=== PATIENT | male | born 1980 | race Caucasian/White ===

== ENCOUNTER → 2023-07-19 | Outpatient (CLI) | payer OTHER, SELFPAY ==
[2023-07-19 17:44] LABS: Absolute Lymphocyte Count 1.93 X10^3/uL (0.83-4.51); Absolute Neutrophil Count 4.8 X10^3/uL (2.0-7.7); Basophil# 0.05 X10^3/uL; Basophil% 0.6 % (0-1); Eosinophil# 0.21 X10^3/uL; Eosinophils% 2.7 % (0-5); Hematocrit 43.1 % (40-54); Hemoglobin 14.4 g/dL (13.0-16.5); Lymphocyte # 1.93 X10^3/ul (0.83-4.51); Lymphocyte % 24.9 % (19-41); Mean Corp Hgb Conc 33.4 g/dL (32-36); Mean Corpuscular Hgb 27.6 pg (27.0-32.0); Mean Corpuscular Volume 82.7 fL (80-94); Monocyte# 0.69 X10^3/uL; Monocyte% 8.9 % (0-10); NRBC Flagged by Analyzer 0 % (0-5); Neutrophil # 4.84 X10^3/uL (2.7-7.7); Neutrophil % 62.6 % (47-70); Platelet Count 312 K/mm3 (150-450); RBC Distribution Width CV 13.5 % (11.6-14.6); RBC Distribution Width SD 40.2 fl (35.1-43.9); Red Blood Count 5.21 M/mm3 (4.6-6.2); White Blood Count 7.7 K/mm3 (4.4-11.0)
[2023-07-19 18:03] LABS: ALB/GLOB Ratio 1.2 RATIO (0.9-2.4); AST(SGOT) 18 U/L (15-37); Alanine Aminotransfer ALT/SGPT 37 U/L (16-61); Albumin, Serum 4.1 g/dL (3.2-5.0); Alkaline Phosphatase 107 U/L (45-117); Anion Gap 6 (5-15); BUN 14 mg/dL (7-18); BUN/Creat Ratio 11.2 RATIO (10-20); Calcium,Total 9.2 mg/dL (8.5-10.1); Chloride 107 mmol/L (98-107); Cholesterol 198 mg/dL (200); Creatinine, Serum 1.25 mg/dL (0.70-1.30); EST Glomerular Filtration Rate 68 mL/min (>60); Est Glom Filt Rate - Afr Amer 82 mL/min (>60); Globulin 3.4 g/dL (2.2-4.2); Glucose 103 mg/dL (74-106); High Density Lipoprotein 35 mg/dL; Potassium 3.9 mmol/L (3.5-5.1); Protein, Total 7.5 g/dL (6.4-8.2); Sodium Level 140 mmol/L (136-145); T4 Free Direct 0.88 ng/dL (0.76-1.46); Thyroid Stim Hormone (TSH) 0.49 uIU/mL (0.358-3.74); Triglycerides 290 mg/dL; Very Low Density Lipoprotein 58 mg/dL (5-40)
== END | disposition home or self-care (01) ==
LOC: MTLAB 15:47
PROVIDERS: PCP Family Medicine; Referring Provider Family Medicine; Visit Provider Family Medicine
DX: E04.1 Nontoxic single thyroid nodule (principal); E66.9 Obesity, unspecified
CPT/HCPCS: 36415; 80053; 80061; 84439; 84443; 85025

== ENCOUNTER → 2023-07-22 | Outpatient (CLI) | payer OTHER, SELFPAY ==
--- NOTE | 2023-07-22 16:13 | US_ITS ---
STUDY: THYROID ULTRASOUND REASON FOR EXAM: Male, 42 years old. thryoid nodule TECHNIQUE: Ultrasound evaluation of the thyroid was performed with real-time and static cueto-scale imaging. COMPARISON: None. FINDINGS: RIGHT LOBE: The right lobe of the thyroid gland measures 6.2 x 2 x 2.9 cm. There is a homogeneous echotexture. There are no demonstrated solid, cystic or complex lesions. LEFT LOBE: The left lobe of the thyroid gland measures 5.9 x 2.1 x 2.1 cm. There is a homogeneous echotexture. There are no demonstrated solid, cystic or complex lesions. ISTHMUS: The isthmus measures 6 mm . There are multiple lymph nodes the largest on the right measuring 2.5 x 2.8 x 0.6 cm and on the left 1.7 x 1.3 x 2.7 cm. US/Head/Neck Soft Tissue IMPRESSION: Nonspecific diffuse thyroid enlargement without evidence for focal nodule. Clinical correlation recommended to exclude possibility of Graves'' disease. Mild bilateral adenopathy of indeterminate etiology or clinical significance. Electronically Signed: Dane Whitten MD at 22:58 EST ,
--- OUTSIDE RECORDS SUMMARY | 2023-07-22 19:46 | XMS RPT_ITS | CCD ---
Author Name Unknown Address [address] [place] [address] Organization [facility] Care Team Providers Care Workers Compensation Paralegal Name Role Phone Lisha Obregon Unavailable Unavailable Freddie Alvarado MD Primary Care Provider [phone] FREDDIE ALVARADO Primary Care Unavailable Allergies Allergy Classification Reported Allergen(s) Allergy Type Date of Onset Reaction(s) Facility (2 sources) fluticasone; Translations: [FLUTICASONE PROPIONATE] Drug Allergy 8 [facility] Work Phone: (2 sources) fluticasone / salmeterol; Translations: [FLUTICASONE PROPION-SALMETERO L] Drug Allergy 8 [facility] Work Phone: (1 source) Environmental allergies [Other] Propensity to adverse reactions 7 [facility] (1 source) OTHER; Translations: [OTHER] Propensity to adverse reactions (disorder) 7 [facility] Repository Medications Current Medications Medication Drug Class(es) Dates Sig (Normalized) Sig (Original) amoxicillin 875 mg / clavulanate 125 mg oral tablet (1 source) Penicillin-class Antibacterial Start: 12-20-2022 End: 12-25-2022 take 1 tablet by mouth twice daily amoxicillin-clav ulanic acid (AUGMENTIN) 875-125 mg per tablet Take 1 tablet by mouth twice daily for 5 days. 10 tablet 0 12/20/2022 12/25/2022 Active Completed/Discontinued Medications Medication Drug Class(es) Dates Sig (Normalized) Sig (Original) cetirizine hydrochloride 10 mg oral tablet (1 source) Histamine-1 Receptor Antagonist Start: 09-02-2006 take 1 tablet by mouth once daily cetirizine (ZYRTEC) 10 mg ORAL Tab Take one(1) tablet daily. for allergy 90 3 09/02/2006 Active Problems Active Problems Problem Classification Problem Date Documented Da te Episodic/Chronic Disorders of lipid metabolism (1 source) Dyslipidemia; Translations: [Hyperlipidemia, unspecified] 05-16-2013 Chronic Other upper respiratory disease (1 source) Allergic rhinitis; Translations: [Allergic rhinitis, unspecified] Onset: 06-12-2005 01-29-2011 Chronic Other upper respiratory infections (1 source) Bacterial sinusitis; Translations: [Chronic sinusitis, unspecified] 12-20-2022 Chronic Unclassified (1 source) Unknown / UNK(Unknown) Onset: 04-16-2017 Past or Other Problems Problem Classification Problem Date Documented Da te Episodic/Chronic Other lower respiratory disease (1 source) Cough; Translations: [Cough] Onset: 07-09-2006 01-29-2011 Episodic Unclassified (1 source) Z31.448 Onset: 04-16-2017 Results Test Name Value Interpretation Reference Range Facil ity Vital Signs Date Time Vital Sign Value Performing Clinician Ned litkhoa 12-20-2022 07:21-0400 Body temperature 98.2 [degF] Krislyn Aberegg PA Work Phone: [facility] 12-20-2022 07:21-0400 Body weight 119.66 kg Krislyn Aberegg PA Work Phone: [facility] 12-20-2022 07:21-0400 Diastolic blood pressure 84 mm[Hg] Krislyn Aberegg PA Work Phone: [facility] 12-20-2022 07:21-0400 Heart rate 88 /min Krislyn Aberegg PA Work Phone: [facility] 12-20-2022 07:21-0400 Respiratory rate 18 /min Krislyn Aberegg PA Work Phone: [facility] 12-20-2022 07:21-0400 SaO2% (BldA) [Mass fraction] 98 % Krislyn Aberegg PA Work Phone: [facility] 12-20-2022 07:21-0400 Systolic blood pressure 132 mm[Hg] Krislyn Aberegg PA Work Phone: [facility] Encounters Encounter Date Encounter Type Care Provider Facility Start: 12-20-2022 End: 12-20-2022 ambulatory FREDDIE VANESSAEY Facility:[facility] Start: 12-20-2022 End: 12-20-2022 Patient encounter procedure Cecelia GIVENS Work Phone: [facility] Plan of Treatment Date Care Activity Detail Author Start: 01-18-2023 Influenza vaccination INFLUENZA (#1) [facility] Start: 05-20-2022 DEPRESSION ASSESSMENT DEPRESSION ASS ESSMENT [facility] Start: 06-23-2021 COVID-19 VACCINE (4 - Moderna series) COVID-19 VACCINE (4 - Moderna series) [facility] Start: 12-18-2020 Urine microalbumin profile DTA P,TDAP,TD (3 - Td or Tdap) [facility] Start: 05-15-2018 LIPID SCREEN LIPID SCREEN [facility] Start: 2000 HEPATITIS C SCREENING HEPATITIS C SC REENING [facility] Start: 1982 HEPATITIS B (1 of 3 - 3-dose series) HEPATITIS B (1 of 3 - 3-dose series) [facility] Immunizations Immunization Date Immunization Notes Care Provider Jermaine gonzalez 12-18-2010 tetanus toxoid, redu bert diphtheria toxoid, and acellular pertussis vaccine, adsorbed Cecelia GIVENS Work Phone: [facility] Work Phone: 03-31-2007 influenza virus vacc ine, unspecified formulation Cecelia GIVENS Work Phone: [facility] 02-27-2007 pneumococcal polysaccharide vaccine, 23 valent Cecelia GIVENS Work Phone: [facility] 12-25-1999 tetanus and diphther ia toxoids, not adsorbed, for adult use Cecelia GIVENS Work Phone: [facility] Payers Date Payer Category Payer Unknown [id number] 2013 Unknown MMO MMO [employer] PPO [id number] 2013-Present [phone] [address] [place] [address] O [id number] Social History Date Type Detail Facility Start: 12-20-2022 Tobacco smoking stat [facility] Never smoked tobacco [facility] Start: 12-20-2022 Tobacco use and exposure Smoke less tobacco non-user [facility] Start: 12-20-2022 Alcohol intake Current drinke r of alcohol (finding) [facility] Start: 12-20-2022 Alcohol intake [facility] Start: 12-20-[address] [facility] Start: 1980 Sex Assigned At Not on file [facility] Progress note 12-20-2022 Note Date & Type Note Facility 12-20-2022 Note HNO ID: [id number] Author: Cecelia Chavez PA Service: ? Author Type: Physician Expeller Operator Type: Progress Notes Filed: 12/20/2022 7:28 AM Note Text: This note was created using [employer] the [employer]. Subjective Nikolay Smallwood is a 42 year old male. HPI 42-year-old male presents for sinus congestion, headache, ears plugged for about 2 weeks. He states that the congestion is mainly on the left side of his face. He has facial pain and headache on the left side. He feels like his ear is clogged. No fevers. No cough. No sick contacts that he is aware of. PAST MEDICAL HISTORY Diagnosis Date Allergic arthritis Anxiety state, unspecified Depressive disorder, not elsewhere classified Dyslipidemia PAST SURGICAL HISTORY Procedure Laterality Date TONSILLECTOMY PRIMARY/SECONDARY AGE 14/> age 15 ALLERGIES Advair Diskus [Fluticasone Propion-Salmeterol], Environmental Allergies [Other], and Flovent [Fluticasone Propionate] MEDICATIONS amoxicillin-clavulanic acid (AUGMENTIN) 875-125 mg per tablet Take 1 tablet by mouth twice daily for 5 days. cetirizine (ZYRTEC) 10 mg ORAL Tab Take one(1) tablet daily. for allergy (Patient not taking: Reported on 12/20/2022) FAMILY HISTORY Problem Relation Age of Onset GI Mother gerd Coronary Artery Disease Maternal Grandfather CABG x 5 Coronary Artery Disease Paternal Grandfather Hypertension Mother Stroke Paternal Grandmother Breast Cancer Mother Social History Tobacco Use Smoking status: Never Smokeless tobacco: Never Substance Use Topics Alcohol use: Yes Alcohol/week: 10.0 standard drinks of alcohol Drug use: No Review of Systems Constitutional: Negative for chills and fever. HENT: Positive for congestion, ear pain, sinus pressure and sinus pain. Negative for sore throat. Respiratory: Negative for cough and shortness of breath. Gastrointestinal: Negative for diarrhea and vomiting. Neurological: Positive for headaches. Objective BP 132/84 Pulse 88 Temp 36.8 ?C (98.2 ?F) Resp 18 Wt 119.7 kg (263 lb 12.8 oz) SpO2 98% BMI 35.78 kg/m? Physical Exam Vitals and nursing note reviewed. Constitutional: General: He is not in acute distress. Appearance: Normal appearance. He is not toxic-appearing. HENT: Right Ear: Tympanic membrane and ear canal normal. Left Ear: Tympanic membrane and ear canal normal. Nose: Mucosal edema and congestion present. Left Sinus: Maxillary sinus tenderness and frontal sinus tenderness present. Mouth/Throat: Mouth: Mucous membranes are moist. Eyes: Conjunctiva/sclera: Conjunctivae normal. Cardiovascular: Rate and Rhythm: Normal rate and regular rhythm. Pulmonary: Effort: Pulmonary effort is normal. Breath sounds: Normal breath sounds. Skin: General: Skin is warm and dry. Neurological: Mental Status: He is alert. Assessment and Plan ASSESSMENT/PLAN: 1. Bacterial sinusitis - ICD9: 473.9, 041.9, ICD10: J32.9, B96.89 - Will begin treatment with Augmentin 875 mg PO BID for 5 days - The patient should also be given OTC decongestants prn for the first 5-7 days of treatment. - Supportive care with plenty of fluids, rest, and analgesia prn. Diagnosis and treatment plan were discussed and questions were answered to the patient's satisfaction. Pt acknowledged understanding of concepts and follow up plan. Specific signs and symptoms that would indicate the need for higher level of care were discussed in detail warranting prompt ER evaluation. TOSHA Vieyra [facility] History of Present illness Narrative 12-20-2022 Cecelia Chavez PA - 12/20/2022 7:26 AM EDT Note Date & Type Note Facility 12-20-2022 History of Presen t illness Narrative This note was created using [email or web address]. Subjective Nikolay Smallwood is a 42 year old male. HPI 42-year-old male presents for sinus congestion, headache, ears plugged for about 2 weeks. He states that the congestion is mainly on the left side of his face. He has facial pain and headache on the left side. He feels like his ear is clogged. No fevers. No cough. No sick contacts that he is aware of. PAST MEDICAL HISTORY Diagnosis Date Allergic arthritis Anxiety state, unspecified Depressive disorder, not elsewhere classified Dyslipidemia PAST SURGICAL HISTORY Procedure Laterality Date TONSILLECTOMY PRIMARY/SECONDARY AGE 14/> age 15 ALLERGIES Advair Diskus [Fluticasone Propion-Salmeterol], Environmental Allergies [Other], and Flovent [Fluticasone Propionate] MEDICATIONS amoxicillin-clavulanic acid (AUGMENTIN) 875-125 mg per tablet Take 1 tablet by mouth twice daily for 5 days. cetirizine (ZYRTEC) 10 mg ORAL Tab Take one(1) tablet daily. for allergy (Patient not taking: Reported on 12/20/2022) FAMILY HISTORY Problem Relation Age of Onset GI Mother gerd Coronary Artery Disease Maternal Grandfather CABG x 5 Coronary Artery Disease Paternal Grandfather Hypertension Mother Stroke Paternal Grandmother Breast Cancer Mother Social History Tobacco Use Smoking status: Never Smokeless tobacco: Never Substance Use Topics Alcohol use: Yes Alcohol/week: 10.0 standard drinks of alcohol Drug use: No Review of Systems Constitutional: Negative for chills and fever. HENT: Positive for congestion, ear pain, sinus pressure and sinus pain. Negative for sore throat. Respiratory: Negative for cough and shortness of breath. Gastrointestinal: Negative for diarrhea and vomiting. Neurological: Positive for headaches. Objective BP 132/84 Pulse 88 Temp 36.8 C (98.2 F) Resp 18 Wt 119.7 kg (263 lb 12.8 oz) SpO2 98% BMI 35.78 kg/m Physical Exam Vitals and nursing note reviewed. Constitutional: General: He is not in acute distress. Appearance: Normal appearance. He is not toxic-appearing. HENT: Right Ear: Tympanic membrane and ear canal normal. Left Ear: Tympanic membrane and ear canal normal. Nose: Mucosal edema and congestion present. Left Sinus: Maxillary sinus tenderness and frontal sinus tenderness present. Mouth/Throat: Mouth: Mucous membranes are moist. Eyes: Conjunctiva/sclera: Conjunctivae normal. Cardiovascular: Rate and Rhythm: Normal rate and regular rhythm. Pulmonary: Effort: Pulmonary effort is normal. Breath sounds: Normal breath sounds. Skin: General: Skin is warm and dry. Neurological: Mental Status: He is alert. Assessment and Plan ASSESSMENT/PLAN: 1. Bacterial sinusitis - ICD9: 473.9, 041.9, ICD10: J32.9, B96.89 - Will begin treatment with Augmentin 875 mg PO BID for 5 days - The patient should also be given OTC decongestants prn for the first 5-7 days of treatment. - Supportive care with plenty of fluids, rest, and analgesia prn. Diagnosis and treatment plan were discussed and questions were answered to the patient's satisfaction. Pt acknowledged understanding of concepts and follow up plan. Specific signs and symptoms that would indicate the need for higher level of care were discussed in detail warranting prompt ER evaluation. TOSHA Vieyra documented in this encounter [facility] History of Past illness Narrative 02-27-2007 Note Date & Type Note Facility documented as of this encounter (statuses as of 12/20/2022) [facility] Evaluation note Note Date & Type Note Facility documented in this encounter [facility] Summary Purpose Family History No Family History Records FoundNo Family History Records Found Advance Directives No Advanced Directives Records FoundNo Advanced Directives Records Found Additional Source Comments (unrecognized sect ion and content) No Status Records FoundNo Status Records Found INFORMATION SOURCE (unrecogn ized section and content) DATE CREATED AUTHOR AUTHOR'S ORGANIZ ATION 12/20/2022 [facility] Source Comments (unrecognize d section and content) In the event this informatio n is protected by the Federal Confidentiality of Alcohol and Drug Abuse Patient Records regulations: The Federal rules restrict any use of the information to criminally investigate or prosecute any alcohol or drug abuse patient.[facility] Reason for Visit (unrecogniz ed section and content) Care Teams (unrecognized sec tion and content) FOR RECORDS PERTAINING TO PATIENTS WHO ARE OR HAVE BEEN ENROLLED IN A CHEMICAL DEPENDENCY/SUBSTANCEABUSE PROGRAM, SOME INFORMATION MAY BE OMITTED. This clinical summary was aggregated from multiple sources. Caution should be exercised in using it in the provision of clinical care. This summary normalizes information from multiple sources, and as a consequence, information in this document may materially change the coding, format and clinical context of patient data. In addition, data may be omitted in some cases. CLINICAL DECISIONS SHOULD BE BASED ON THE PRIMARY CLINICAL RECORDS. [employer] [facility]. provides no warranty or guarantee of the accuracy or completeness of information in this document.
== END | disposition home or self-care (01) ==
PROVIDERS: PCP Family Medicine; Referring Provider Family Medicine; Visit Provider Family Medicine
DX: E04.1 Nontoxic single thyroid nodule (principal)
CPT/HCPCS: 76536

== ENCOUNTER → 2023-08-27 | Outpatient (CLI) | payer OTHER, SELFPAY ==
[2023-08-30 08:11] LABS: Thyroglobulin Antibody < 1.0 IU/mL (0.0-0.9); Thyroid Peroxidase AB < 9 IU/mL (0-34); Thyroid Stim Immunoglob <0.10 IU/L (0.00-0.55)
== END | disposition home or self-care (01) ==
LOC: MFPLAB 15:42
PROVIDERS: PCP Family Medicine; Visit Provider Family Medicine
DX: E01.0 Iodine-deficiency related diffuse (endemic) goiter (principal)
CPT/HCPCS: 36415; 84445; 86376; 86800

== ENCOUNTER 2023-10-09 14:56 | Outpatient (RCR) | payer OTHER, SELFPAY | END 2023-10-18 23:59 | LOC: NS 14:56 | PROVIDERS: PCP Family Medicine; Referring Provider Family Medicine; Visit Provider Family Medicine | DX: Z71.3 Dietary counseling and surveillance (principal); E66.9 Obesity, unspecified; E01.0 Iodine-deficiency related diffuse (endemic) goiter; Z68.35 Body mass index [BMI] 35.0-35.9, adult | CPT/HCPCS: 97802 ==

== ENCOUNTER 2023-10-30 10:20 | Outpatient (RCR) | payer OTHER, SELFPAY | END 2023-11-17 23:59 | LOC: NS 10:20 | PROVIDERS: PCP Family Medicine; Referring Provider Family Medicine; Visit Provider Family Medicine | DX: Z71.3 Dietary counseling and surveillance (principal); E66.9 Obesity, unspecified; R07.82 Intercostal pain; E01.0 Iodine-deficiency related diffuse (endemic) goiter; Z68.34 Body mass index [BMI] 34.0-34.9, adult | CPT/HCPCS: 97803 ==

== ENCOUNTER 2023-11-26 15:58 | Outpatient (RCR) | payer OTHER, SELFPAY | END 2023-12-18 23:59 | LOC: NS 15:58 | PROVIDERS: PCP Family Medicine; Referring Provider Family Medicine; Visit Provider Family Medicine | DX: Z71.3 Dietary counseling and surveillance (principal); E66.9 Obesity, unspecified; E01.0 Iodine-deficiency related diffuse (endemic) goiter; Z68.33 Body mass index [BMI] 33.0-33.9, adult | CPT/HCPCS: 97803 ==

== ENCOUNTER 2024-01-01 14:14 | Outpatient (RCR) | payer OTHER, SELFPAY | END 2024-01-18 23:59 | LOC: NS 14:14 | PROVIDERS: PCP Family Medicine; Referring Provider Family Medicine; Visit Provider Family Medicine | DX: Z71.3 Dietary counseling and surveillance (principal); E66.9 Obesity, unspecified; E01.0 Iodine-deficiency related diffuse (endemic) goiter; R07.82 Intercostal pain; Z68.34 Body mass index [BMI] 34.0-34.9, adult | CPT/HCPCS: 97803 ==

== ENCOUNTER → 2024-01-22 | Outpatient (CLI) | payer OTHER, SELFPAY ==
--- NOTE | 2024-01-22 13:27 | MRI_ITS ---
STUDY: MRI BRAIN WITH AND WITHOUT CONTRAST (ATTENTION INTERNAL AUDITORY CANALS - I.A.C.''s) REASON FOR EXAM: Male, 43 years old. ASSESS CRANIAL NERVE 7, L FACIAL NUMBNESS TECHNIQUE: Standardized multiplanar fat and water weighted pulse sequences were obtained. IV 23 CC CLARISCAN was administered for the contrast portion of the examination. COMPARISON: None. FINDINGS: Normal bilateral temporal bones. Normal bilateral internal auditory canals. There is no demonstrated intracanalicular or cisternal vestibular schwannoma (acoustic neuroma). There is no enhancement of the bilateral VIIth or VIIIth cranial nerves. Normal bilateral cochlea, vestibules and semicircular canals. Normal size of the ventricles and extra-axial spaces for the patient''s age. Normal white matter tracts of the supratentorial brain. Normal bilateral basal ganglia. Normal thalami. Normal flow voids within the major intracranial circulation suggesting patency by spin echo criteria. Normal venous enhancement. There is no enhancing intra-axial or extra-axial abnormality. There is no extra-axial fluid accumulation. Normal sella turcica, pituitary gland, infundibular stalk, optic chiasm and hypothalamus. Normal tectal plate and pineal gland. Normal midbrain, marce and medulla. Normal cerebellum. Normal basal cisterns. No demonstrated orbital abnormality, within the constraints of a routine brain study. Mild mucosal thickening of the ethmoid air cells bilaterally Normal calvarium and skull base. Normal visualized soft tissue structures. Normal visualized upper cervical spine. MRI/Brain W/WO Contrast IMPRESSION: Normal unenhanced and enhanced MRI of the bilateral internal auditory canals (I.A.C''s). No definitive evidence for facial nerve inflammation or neuroma. Electronically Signed: Dane Whitten MD at 18:21 EDT ,
== END | disposition home or self-care (01) ==
PROVIDERS: PCP Family Medicine; Referring Provider Family Medicine; Visit Provider Family Medicine
DX: R20.0 Anesthesia of skin (principal)
CPT/HCPCS: 70553; A9575

== ENCOUNTER 2024-02-12 14:52 | Outpatient (RCR) | payer OTHER, SELFPAY | END 2024-02-17 23:59 | LOC: NS 14:52 | PROVIDERS: PCP Family Medicine; Referring Provider Family Medicine; Visit Provider Family Medicine | DX: Z71.3 Dietary counseling and surveillance (principal); E66.9 Obesity, unspecified; Z68.34 Body mass index [BMI] 34.0-34.9, adult | CPT/HCPCS: 97803 ==

== ENCOUNTER → 2024-02-28 | Outpatient (CLI) | payer OTHER, SELFPAY ==
[2024-02-28 06:25] LABS: Absolute Lymphocyte Count 2.47 X10^3/uL (0.83-4.51); Absolute Neutrophil Count 4.1 X10^3/uL (2.0-7.7); Basophil# 0.06 X10^3/uL; Basophil% 0.8 % (0-1); Eosinophil# 0.23 X10^3/uL; Hematocrit 43.3 % (40-54); Hemoglobin 14.3 g/dL (13.0-16.5); Lymphocyte # 2.47 X10^3/ul (0.83-4.51); Lymphocyte % 32.1 % (19-41); Mean Corpuscular Hgb 27.7 pg (27.0-32.0); Mean Corpuscular Volume 83.8 fL (80-94); Monocyte# 0.77 X10^3/uL; NRBC Flagged by Analyzer 0 % (0-5); Neutrophil # 4.14 X10^3/uL (2.7-7.7); Neutrophil % 53.8 % (47-70); Platelet Count 291 K/mm3 (150-450); RBC Distribution Width CV 13.6 % (11.6-14.6); RBC Distribution Width SD 41.6 fl (35.1-43.9); Red Blood Count 5.17 M/mm3 (4.6-6.2); White Blood Count 7.7 K/mm3 (4.4-11.0)
[2024-02-28 07:09] LABS: ALB/GLOB Ratio 1.1 RATIO (0.9-2.4); AST(SGOT) 14 U/L (15-37); Alanine Aminotransfer ALT/SGPT 25 U/L (16-61); Albumin, Serum 3.9 g/dL (3.2-5.0); Alkaline Phosphatase 102 U/L (45-117); Anion Gap 5 (5-15); BUN 17 mg/dL (7-18); BUN/Creat Ratio 13.9 RATIO (10-20); Calcium,Total 9.1 mg/dL (8.5-10.1); Chloride 108 mmol/L (98-107); Cholesterol 179 mg/dL (200); Creatinine, Serum 1.22 mg/dL (0.70-1.30); EST Glomerular Filtration Rate 69 mL/min (>60); Est Glom Filt Rate - Afr Amer 84 mL/min (>60); Globulin 3.5 g/dL (2.2-4.2); Glucose 109 mg/dL (74-106); High Density Lipoprotein 42 mg/dL; Protein, Total 7.4 g/dL (6.4-8.2); Sodium Level 140 mmol/L (136-145); Triglycerides 138 mg/dL; Very Low Density Lipoprotein 28 mg/dL (5-40)
== END | disposition home or self-care (01) ==
LOC: LAB 05:54
PROVIDERS: PCP Family Medicine; Referring Provider Family Medicine; Visit Provider Family Medicine
DX: E66.9 Obesity, unspecified (principal)
CPT/HCPCS: 36415; 80053; 80061; 85025

== ENCOUNTER 2024-03-11 14:52 | Outpatient (RCR) | payer OTHER, SELFPAY | END 2024-03-19 23:59 | LOC: NS 14:52 | PROVIDERS: PCP Family Medicine; Referring Provider Family Medicine; Visit Provider Family Medicine | DX: Z71.3 Dietary counseling and surveillance (principal); E66.9 Obesity, unspecified; E01.0 Iodine-deficiency related diffuse (endemic) goiter; Z68.34 Body mass index [BMI] 34.0-34.9, adult | CPT/HCPCS: 97803 ==

== ENCOUNTER → 2025-01-26 | Outpatient (CLI) | payer OTHER, SELFPAY ==
[2025-01-26 17:56] LABS: Hematocrit 41.3 % (40-54); Hemoglobin 14.2 g/dL (13.0-16.5); Immature Granulocytes Count 0.030 X10^3/uL (0.0-0.0); Mean Corp Hgb Conc 34.4 g/dL (32-36); Mean Corpuscular Volume 82.4 fL (80-94); Mean Platelet Vol. 10.4 fl (6.2-12.0); NRBC Flagged by Analyzer 0 % (0-5); Platelet Count 298 K/mm3 (150-450); RBC Distribution Width CV 13.3 % (11.6-14.6); RBC Distribution Width SD 39.8 fl (35.1-43.9); Red Blood Count 5.01 M/mm3 (4.6-6.2); White Blood Count 8.2 K/mm3 (4.4-11.0)
[2025-01-26 19:15] LABS: AST(SGOT) 18 U/L (<=37); Alanine Aminotransfer ALT/SGPT 15 U/L (<=46); Albumin, Serum 4.4 g/dL (3.5-5.0); Alkaline Phosphatase 88 U/L (40-129); Anion Gap 12 (5-15); BUN 15 mg/dL (4-19); BUN/Creat Ratio 13.1 RATIO (10-20); Calcium,Total 9.3 mg/dL (7.6-11.0); Carbon Dioxide 23.9 mmol/L (21.0-32.0); Chloride 104 mmol/L (98-108); Cholesterol 181 mg/dL (<=200); Globulin 2.6 g/dL (2.2-4.2); Glucose 119 mg/dL (70-99); Low Density Lipoprotein Calc. 63 mg/dL; Potassium 3.8 mmol/L (3.3-5.1); Triglycerides 434 mg/dL; Very Low Density Lipoprotein 87 mg/dL (5-40); cholesterol:hdl ratio screen 5.82
[2025-02-05 22:07] LABS: Thyroid Stim Immunoglob <0.10 IU/L (0.00-0.55)
== END | disposition home or self-care (01) ==
PROVIDERS: PCP Family Medicine; Referring Provider Family Medicine; Visit Provider Family Medicine
DX: E66.9 Obesity, unspecified (principal); E01.0 Iodine-deficiency related diffuse (endemic) goiter
CPT/HCPCS: 36415; 80053; 80061; 84432; 84439; 84443; 84445; 85025; 86376; 86800

== ENCOUNTER → 2025-02-10 | Outpatient (CLI) | payer OTHER, SELFPAY ==
[2025-02-10 11:11] LABS: Cholesterol 216 mg/dL (<=200); Low Density Lipoprotein Calc. 131 mg/dL; Triglycerides 203 mg/dL; Very Low Density Lipoprotein 41 mg/dL (5-40); cholesterol:hdl ratio screen 4.85
== END | disposition home or self-care (01) ==
LOC: LAB 08:54
PROVIDERS: PCP Family Medicine; Referring Provider Family Medicine; Visit Provider Family Medicine
DX: E66.9 Obesity, unspecified (principal)
CPT/HCPCS: 36415; 80061